=== PATIENT | female | born 1940 | race Caucasian/White ===

== ENCOUNTER → 2016-10-04 | Outpatient (REF) | payer MEDICARE, BC ==
[~2016-10-04] MED LIST: ASPI-586 PO; CALC-9 PO; HYDR50TA3 PO; LISI-593 PO; LSNP20T PO; MULT-116 PO
[2016-10-04 11:38] LABS: ANION GAP 14.4 MEQ/L (3-15)
== END ==
LOC: LAB 11:16
PROVIDERS: ATTEND Family Medicine
DX: I10 Essential (primary) hypertension (principal)
CPT/HCPCS: 80048